=== PATIENT | female | born 1950 | race Caucasian/White ===

== ENCOUNTER 2017-03-20 18:23 | Emergency (ER) | payer MEDICARE, OTHER ==
--- NOTE | 2017-03-20 19:18 | ERPHSYRPT ---
- History of Present Illness Time Seen by Provider: 03/20/17 19:15 Source: EMS Exam Limitations: clinical condition Patient Subjective Stated Complaint: ems states pt was found in her home on bathroom floor. states pt had a syncopal episode. ems states pt accu check was 182. ems states pt need to be sternal rubbed at home to arouse. Triage Nursing Assessment: pt flushed warm, dry. pt alert able to answer questions. pt states she has had vomiting and diarrhea for the past 1 day. pupils perrl. 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 Physician History: 66-year-old white female brought by medics with complaints of syncopal episode at home. patient apparently found on the bathroom floor at home patient needed sternal rub to arouse her Patient will open her eyes to command will squeeze to command otherwise is not speaking, past medical history includes migraines, high blood pressure, diabetes , depression, panic disorder Past surgical history includes hysterectomy Timing/Duration: today Severity: moderate Modifying Factors: Improves With: nothing Associated Symptoms: nausea, syncope, weakness, other (diarrhea at home), No vomiting, No abdominal pain, No shortness of breath, No heartburn, No diaphoresis, No cough, No chills, No chest pain, No fever, No headaches, No loss of appetite, No malaise, No rash, No seizure Allergies/Adverse Reactions: iodine [Iodine] Allergy (Verified 03/20/17 18:31) Home Medications: Estradiol 0.5 mg PO DAILY 03/20/17 [History] Insulin Glargine,Hum.rec.anlog [Lantus Solostar] 20 unit SQ HS 03/20/17 [History ] Insulin Lispro [Humalog] 8 unit SQ QID 03/20/17 [History] Mirabegron [Myrbetriq] 50 mg PO DAILY 03/20/17 [History] Paroxetine HCl 25 mg PO BID 03/20/17 [History] Propranolol HCl [Inderal Xl] 120 mg PO DAILY 03/20/17 [History] Ropinirole HCl [Requip] 0.25 mg PO HSPRN PRN 03/20/17 [History] Zolpidem Tartrate [Ambien] 10 mg PO HSPRN PRN 03/20/17 [History] Hx Tetanus, Diphtheria Vaccination/Date Given: Yes Hx Influenza Vaccination/Date Given: No Hx Pneumococcal Vaccination/Date Given: No Immunizations Up to Date: Yes - Review of Systems Constitutional: Weakness, No Fever, No Chills, No Fatigue, No Lethargy, No Malaise, No Night Sweats, No Weight Loss Eyes: No Symptoms Ears, Nose, & Throat: No Symptoms Respiratory: No Cough, No Dyspnea Cardiac: No Chest Pain, No Edema, No Syncope Abdominal/Gastrointestinal: Nausea, Vomiting, Diarrhea, No Abdominal Pain, No Constipation, No Hematemesis, No Hematochezia, No Melena, No Dysphagia, No Appetite Changes Genitourinary Symptoms: No Dysuria Musculoskeletal: No Back Pain, No Neck Pain Skin: No Rash Neurological: Other (syncope at home) Endocrine: No Symptoms All Other Systems: Reviewed and Negative - Past Medical History Pertinent Past Medical History: Yes Neurological History: Migraines ENT History: No Pertinent History Cardiac History: Hypertension Respiratory History: No Pertinent History Endocrine Medical History: Diabetes Type II Musculoskeletal History: No Pertinent History GI Medical History: No Pertinent History History: No Pertinent History Psycho-Social History: Depression Female Reproductive Disorders: No Pertinent History - Past Surgical History Past Surgical History: Yes Neuro Surgical History: No Pertinent History Cardiac: No Pertinent History Respiratory: No Pertinent History Gastrointestinal: No Pertinent History Genitourinary: No Pertinent History Musculoskeletal: Orthopedic Surgery Female Surgical History: Hysterectomy - Social History Smoking Status: Never smoker Exposure to second hand smoke: No Drug Use: none Patient Lives Alone: No - Female History Hx Now: No - Nursing Vital Signs Nursing Vital Signs: Initial Vital Signs Temperature 97.9 F 03/20/17 18:25 Pulse Rate 73 03/20/17 18:25 Respiratory Rate 16 03/20/17 18:25 Blood Pressure 154/76 03/20/17 18:25 O2 Sat by Pulse Oximetry 98 03/20/17 18:25 Pain Scale Pain Intensity 5 - Physical Exam General Appearance: other (well-developed obese white female somulant, opens eyes to 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 to command) Eye Exam: PERRL/EOMI, eyes nml inspection Ears, Nose, Throat Exam: normal ENT inspection, TMs normal, pharynx normal, moist mucous membranes Neck Exam: normal inspection, non-tender, supple, full range of motion Respiratory Exam: normal breath sounds, lungs clear, No respiratory distress Cardiovascular Exam: regular rate/rhythm, normal heart sounds, normal peripheral pulses Gastrointestinal/Abdomen Exam: soft, normal bowel sounds, No tenderness, No mass Back Exam: normal inspection, normal range of motion, No CVA tenderness, No vertebral tenderness 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 as tested, other (patient somnolent opens eyes to 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 to command) Skin Exam: normal color, warm, dry, No rash Lymphatic Exam: No adenopathy SpO2 Interpretation: normal (98%) SpO2: 98 Oxygen Delivery: Room Air - Course Nursing assessment & vital signs reviewed: Yes EKG Interpreted by Me: RATE (74 bpm), Sinus Rhythm, NORMAL AXIS, Other (EKG: Sinus rhythm, 74 bpm, normal axis, no acute ST or T wave changes noted) - Radiology Exams Chest X-ray Interpretation: Interpreted by me, Negative, No Pneumonia, No Pneumothorax - CT Exams Head CT Interpretation: Discussed w/radiologist (head CT: Compared to September 23, 2011.near-complete opacification left maxillary sinus. Remaining head CT negative) Ordered Tests: Active Orders 24 hr Category Date Time Status Accucheck STAT Care 03/20/17 19:22 Active Art History Professor STAT Care 03/20/17 18:38 Active Catheter-[place] Dennis STAT Care 03/20/17 18:38 Active EKG-ER Only STAT Care 03/20/17 18:38 Active IV Insertion STAT Care 03/20/17 18:38 Active IV Insertion-2nd Peripheral STAT Care 03/20/17 18:38 Active CHEST 1 VIEW (PORTABLE) Stat Exams 03/20/17 18:40 Taken HEAD WITHOUT CONTRAST [CT] Stat Exams 03/20/17 18:41 Taken CBC W DIFF Stat Lab 03/20/17 19:05 Completed CMP Stat Lab 03/20/17 19:05 Completed TROPONIN Q3H Lab 03/20/17 19:05 Completed TROPONIN Q3H Lab 03/20/17 21:45 Ordered UA W/RFX UR CULTURE Stat Lab 03/20/17 19:09 Completed Urine Triage Profile Stat Lab 03/20/17 18:40 Completed Medication Summary Generic Name Dose Route Start Last Admin Trade Name Freq PRN Reason Stop Dose Admin Sodium Chloride 1,000 mls @ 100 mls/hr 03/20/17 19:45 03/20/17 19:46 Sodium Chloride 0.9% 1000 Ml IV 04/19/17 19:44 100 mls/hr .Q10H ASHU Administration Lab/Rad Data: Laboratory Result Diagrams 03/20/17 19:05 03/20/17 19:05 Laboratory Results 03/20/17 03/20/17 03/20/17 Range/Units 19:09 19:05 19:05 WBC (4.0-10.5) K/mm3 RBC (4.1-5.4) M/mm3 Hgb (12.0-16.0) gm/dl Hct (35-47) % MCV (78-100) fl MCH (26-32) pg MCHC (32-36) g/dl RDW (11.5-14.0) % Plt Count (150-450) K/mm3 MPV (6-9.5) fl Gran % (36.0-66.0) % Lymphocytes % (24.0-44.0) % Monocytes % (0.0-12.0) % Eosinophils % (0.00-5.0) % Basophils % (0.0-0.4) % Basophils # (0-0.4) Sodium 138 (136-145) mEq/L Potassium 4.4 (3.5-5.1) mEq/L Chloride 100 (98-107) mEq/L Carbon Dioxide 21.4 (21-32) mEq/L Anion Gap 20.5 H (5-15) MEQ/L BUN 16 (9-20) mg/dL Creatinine 1.04 (0.55-1.30) mg/dl Estimated GFR 56 ML/MIN Glucose 206 H (70-110) MG/DL Calcium 9.1 (8.5-10.1) mg/dL Total Bilirubin 0.90 (0.2-1.0) mg/dL AST 21 (15-37) U/L ALT 35 (12-78) U/L Alkaline Phosphatase 106 (46-116) U/L Troponin I < 0.017 (0.000-0.056) ng/ml Serum Total Protein 7.5 (6.4-8.2) gm/dL Albumin 3.7 (3.4-5.0) g/dL Ur Collection Type VOID Urine Color YELLOW (YELLOW) Urine Appearance SLIGHTLY CLOUDY (CLEAR) Urine pH 5.0 (5-6) Ur Specific [place] 1.025 (1.005-1.025) Urine Protein NEGATIVE (Negative) Urine Ketones LARGE (NEGATIVE) Urine Blood NEGATIVE (0-5) Cristiano/ul Urine Nitrite NEGATIVE (NEGATIVE) Urine Bilirubin NEGATIVE (NEGATIVE) Urine Urobilinogen NORMAL (0-1) mg/dL Ur Leukocyte Esterase NEGATIVE (NEGATIVE) Urine Culture Reflexed NO (NO) Urine Glucose NEGATIVE (NEGATIVE) mg/dL Urine Opiates Level (NEGATIVE) Ur Methadone (NEGATIVE) Urine Barbiturates (NEGATIVE) Ur Phencyclidine (PCP) (NEGATIVE) Urine Amphetamine (NEGATIVE) U Benzodiazepine Level (NEGATIVE) Urine Cocaine (NEGATIVE) Urine Marijuana (THC) (NEGATIVE) Specimen Received 03/20/17 1840 03/20/17 03/20/17 Range/Units 19:05 18:40 WBC 9.1 (4.0-10.5) K/mm3 RBC 4.70 (4.1-5.4) M/mm3 Hgb 14.8 (12.0-16.0) gm/dl Hct 43.7 (35-47) % MCV 93.0 (78-100) fl MCH 31.5 (26-32) pg MCHC 33.9 (32-36) g/dl RDW 12.5 (11.5-14.0) % Plt Count 175 (150-450) K/mm3 MPV 12.1 H (6-9.5) fl Gran % 81.4 H (36.0-66.0) % Lymphocytes % 11.3 L (24.0-44.0) % Monocytes % 6.0 (0.0-12.0) % Eosinophils % 1.0 (0.00-5.0) % Basophils % 0.3 (0.0-0.4) % Basophils # 0.03 (0-0.4) Sodium (136-145) mEq/L Potassium (3.5-5.1) mEq/L Chloride (98-107) mEq/L Carbon Dioxide (21-32) mEq/L Anion Gap (5-15) MEQ/L BUN (9-20) mg/dL Creatinine (0.55-1.30) mg/dl Estimated GFR ML/MIN Glucose (70-110) MG/DL Calcium (8.5-10.1) mg/dL Total Bilirubin (0.2-1.0) mg/dL AST (15-37) U/L ALT (12-78) U/L Alkaline Phosphatase (46-116) U/L Troponin I (0.000-0.056) ng/ml Serum Total Protein (6.4-8.2) gm/dL Albumin (3.4-5.0) g/dL Ur Collection Type Urine Color (YELLOW) Urine Appearance (CLEAR) Urine pH (5-6) Ur Specific [place] (1.005-1.025) Urine Protein (Negative) Urine Ketones (NEGATIVE) Urine Blood (0-5) Cristiano/ul Urine Nitrite (NEGATIVE) Urine Bilirubin (NEGATIVE) Urine Urobilinogen (0-1) mg/dL Ur Leukocyte Esterase (NEGATIVE) Urine Culture Reflexed (NO) Urine Glucose (NEGATIVE) mg/dL Urine Opiates Level NEG. (NEGATIVE) Ur Methadone NEG. (NEGATIVE) Urine Barbiturates NEG. (NEGATIVE) Ur Phencyclidine (PCP) NEG. (NEGATIVE) Urine Amphetamine NEG. (NEGATIVE) U Benzodiazepine Level NEG. (NEGATIVE) Urine Cocaine NEG. (NEGATIVE) Urine Marijuana (THC) NEG. (NEGATIVE) Specimen Received - Progress Progress: improved Progress Note: 03/20/17 21:43 This is a 66-year-old white female with history of migraines, high blood pressure, diabetes, panic disorder, depression. Her states that the patient had been vomiting and having diarrhea for the past several days he apparently last saw her at 9:00 this morning he returned home this afternoon and found the patient laying on the bathroom floor. Patient was transferred by medics to this emergency room on arrival patient was able to move all of her extremities and she would open her eyes to command she would not speak. Head CT was obtained on this patient to head CT was remarkable for right maxillary sinusitis otherwise negative there were no intracranial abnormalities. EKG on this patient was remarkable for normal sinus rhythm [address] or T wave changes were noted Patient was started on IV normal saline a head CT as noted above was obtained chest x-ray was obtained CBC CMP troponin were all obtained which were essentially normal blood sugar was around 182 on arrival. I discussed the patient's care and findings with the patient's family they wish that the patient initially would go to this hospital I discussed case with Dr. quiñonez and she requested that we do a telephone neurology consult ordered. Apparently patient could not have the toted neurology consult performed secondary to the patient's aphasia. Although this was apparently initially attempted. While awaiting results the family decided that the patient wished that the patient go to [facility] where her family doctor is located. I contacted Dr. Samaniego who who is hospitalist at [facility] case is discussed with him and he accepted patient for transfer. Patient will be given aspirin 162 mg either by mouth or OR she has been given IV normal saline patient was having some anxiety while I was discussing the case with Dr. Samaniego I have informed him transfer techs who if this continues we' ll consider Ativan 0.5 mg IV - Departure Time of Disposition: 21:48 Departure Disposition: Transfer ([facility] Dr Samaniego) Clinical Impression: Confusion Syncope Qualifiers: Syncope type: unspecified Qualified Code(s): R55 - Syncope and collapse CVA (cerebral vascular accident) Qualifiers: CVA mechanism: unspecified Qualified Code(s): I63.9 - Cerebral infarction, unspecified Condition: Serious Critical Care Time: No Referrals: JENN SORENSON JR [Primary Care Provider] -
[2017-03-20 19:20] LABS: ADD URINE CULTURE? NO (NO); Bilirubin NEGATIVE (NEGATIVE); Blood NEGATIVE Ery/ul (0-5); COMPLETE URINE MICROSCOPIC? NO; Collection Type VOID; Glucose NEGATIVE (NEGATIVE); Leukocyte Esterase NEGATIVE (NEGATIVE)
[2017-03-20 19:21] LABS: BASOPHIL % 0.3 % (0.0-0.4); Granulocytes % 81.4 % (36.0-66.0); Lymphocytes % 11.3 % (24.0-44.0); Mean Corpuscular Hemoglobin 31.5 pg (26-32); Mean Platelet Volume 12.1 fl (6-9.5); Platelet Count 175 K/mm3 (150-450); Red Cell Distribution Width 12.5 % (11.5-14.0); White Blood Count 9.1 K/mm3 (4.0-10.5)
[2017-03-20 19:27] VITALS: PULSE 65
[2017-03-20 19:36] LABS: ALBUMIN 3.7 g/dL (3.4-5.0); ANION GAP 20.5 MEQ/L (5-15); BILIRUBIN,TOTAL 0.9 mg/dL (0.2-1.0); Carbon Dioxide 21.4 mEq/L (21-32); Potassium 4.4 mEq/L (3.5-5.1); Total Protein 7.5 gm/dL (6.4-8.2)
[2017-03-20] MEDS ORDERED: Sodium Chloride 0.9% 1000 ML 1,000 ML IV SCH (19:45)
[2017-03-20] MEDS ORDERED: Sodium Chloride 0.9% 1000 ML 1,000 ML ONE (19:52)
[2017-03-20 20:00] VITALS: O2SAT 98
[2017-03-20] MEDS ORDERED: Ativan 2 MG/1 ML VIAL IV ONE ×2 (21:49→22:18)
[2017-03-20] MEDS ORDERED: Ativan 2 MG/1 ML VIAL ONE ×2 (21:50→22:18)
[2017-03-20] MEDS ORDERED: BABY ASPIRIN 81 MG CHEW PO ONE (21:50)
[2017-03-20] MEDS ORDERED: ASPIRIN 600 MG ONE (21:51)
[2017-03-20 23:08] VITALS: BP 160/78
--- NOTE | 2017-03-21 08:43 | XRAY ---
Indication: Syncope, acute mental status change, and possible seizure. Multiple contiguous axial images obtained through the head without contrast. Comparison: October 31, 2011. Again normal appearing brain parenchyma, ventricles, and bony calvarium. There is now near-complete opacification of the left maxillary sinus and minimal mucosal thickening of the right maxillary sinus. Mastoid air cells clear. Impression: New paranasal sinus disease. No new/acute intracranial abnormalities. CT DI 66.81
--- NOTE | 2017-03-21 08:46 | XRAY ---
Indication: Syncope, acute mental status change, and possible seizure. Comparison: July 03, 2007. Portable chest remains clear again with a few incidental calcified granulomas. Heart is not enlarged. Vascularity normal. Bony thorax intact again with minimal degenerative changes. Impression: Stable nonacute chest.
== END 2017-03-20 23:10 | disposition short-term general hospital (02) ==
LOC: ED 18:23
DX: I63.9 Cerebral infarction, unspecified (principal); R55 Syncope and collapse; J32.0 Chronic maxillary sinusitis; R47.01 Aphasia; F41.9 Anxiety disorder, unspecified
CPT/HCPCS: 36000; 36415; 51702; 70450; 71010; 80053; 80307; 81002; 82962; 84484; 85025; 93005; 93041; 96360; 96361; 96374; 96376; 99285; J2060; A9270-GY